=== PATIENT | female | born 1940 | race Caucasian/White ===

== ENCOUNTER → 2018-08-31 | Outpatient (CLI) | payer MEDICARE ==
--- NOTE | 2018-08-31 14:43 | PCVCIMAG ---
EXAM: BILATERAL LOWER EXTREMITY ARTERIAL DUPLEX INDICATION: Peripheral Arterial Disease. Leg pain. Nonhealing ulcer medial left ankle. FINDINGS: Right Leg: Common femoral and profunda femoral arteries are patent. Superficial femoral artery and popliteal artery are patent. The anterior and posterior tibial arteries are patent. Occlusion throughout the peroneal artery. Left Leg: Common femoral and profunda femoral arteries are patent. Superficial femoral artery and popliteal artery are patent. Segmental occlusion mid anterior tibial artery. Occlusion of the distal posterior tibial artery. Peroneal artery is patent. IMPRESSION: Occlusion of the right peroneal artery. Otherwise no flow limiting stenosis in the right lower extremity. No left superficial femoral and popliteal artery stenosis. Occlusion of the mid left anterior tibial artery and the distal left posterior tibial artery. LOC:[id number]
== END | disposition home or self-care (01) ==
LOC: PCVCIMAG 11:04
PROVIDERS: ATTEND Emergency Medicine
DX: I73.9 Peripheral vascular disease, unspecified (principal); L97.321 Non-pressure chronic ulcer of left ankle limited to breakdown of skin
CPT/HCPCS: 93925

== ENCOUNTER → 2018-09-30 | Outpatient (CLI) | payer MEDICARE ==
[~2018-09-30] MED LIST: DIAZEPAM 10 MG TABLET. ONE; HEPARIN for SUB-Q USE 5,000 UNIT/ML VIAL. SQ ONE; IODIXANOL 270 MG/ML 100 ML VIAL. ONE; IV NORMAL SALINE 500ML BAG 500 ML ONE; LIDOCAINE 1%/EPI 1:100,000 20 ML VIAL. ONE; MIDAZOLAM HCL/PF 2 MG/2 ML VIAL. ONE; fentaNYL PF VIAL 100 MCG/2 ML VIAL ONE
--- NOTE | 2018-09-30 14:03 | PCVCINTER ---
EXAM: 1. AORTOGRAM AND BILATERAL LOWER EXTREMITY RUNOFF ANGIOGRAM. 2. BILATERAL RENAL ANGIOGRAPHY. INDICATION: Peripheral arterial disease. Nonhealing ulcer left lower extremity. Hypertension. Renal atherosclerosis. No prior catheter based angiographic study is available. A full diagnostic angiogram study is performed today and the decision to intervene is based on this diagnostic study. PROCEDURE: Procedure and risks of angiography intervention is appropriate including limb loss stroke and were discussed with the patient's family and consent obtained. The patient's right groin was prepped in the normal sterile fashion. IV conscious sedation was used throughout procedure with appropriate monitoring from 10:00 AM through 10:45 AM. Ultrasound was used to interrogate the right groin and showed the right common femoral artery to be patent. A permanent spot film was obtained. Under ultrasound guidance access into the right common femoral artery was obtained and a 5 [place] sheath was placed. Through this a 5 [place] flush catheter was placed into the abdominal aorta at the level of the renal arteries and AP aortogram was performed. Catheter was positioned at the aortic bifurcation and both oblique views of the pelvis were obtained. Catheter was positioned into the right external iliac artery and right leg runoff angiography was performed. Catheter was exchanged for a visceral catheter was placed into the right renal arteries and right renal angiograms obtained. Catheter was placed into the the left renal arteries and left renal angiograms were obtained. Catheter was advanced to the level of the left external iliac artery and left leg runoff angiography was obtained. Follow-up angiogram was performed. Catheters and wires removed. Sheath was removed and hemostasis obtained using the FISH device. No immediate complications. FINDINGS: Aortogram: There is one right and one left renal artery. Minimal plaque infrarenal abdominal aorta without significant stenosis. Pelvis: The right and left common and external iliac arteries show good patency. Both internal iliac arteries are patent. The right and left common femoral and profunda femoral arteries are patent. Right renal artery: Minimal plaque proximal vessel causes significant stenosis. Left renal artery: Minimal plaque proximal vessel does not cause significant stenosis. Right leg: Superficial femoral artery shows good patency throughout. Mild 30% stenosis upper popliteal artery is not flow-limiting. Three-vessel runoff into the foot. Note is made the dorsalis pedis is diminutive in size. Left leg: Superficial femoral artery and popliteal arteries show good patency throughout. The posterior tibial artery shows good patency throughout until 1 cm before the plantar arteries where it shows a 50% stenosis. Plantar arteries are within normal limits in size. The peroneal artery shows good patency. The anterior tibial artery shows good patency as well throughout its length to runoff into a moderate-sized dorsalis pedis. IMPRESSION: No flow limiting stenosis in the right lower extremity. Mild stenosis distal most left posterior tibial artery not felt be flow-limiting. Otherwise no stenosis identified in the left lower extremity. We will have the patient return for superficial venous duplex evaluation of the lower extremities. LOC:[id number]
== END | disposition home or self-care (01) ==
LOC: PCVCINTER 08:40
PROVIDERS: ATTEND Nuclear Medicine Nuclear Cardiology
DX: I70.201 Unspecified atherosclerosis of native arteries of extremities, right leg (principal); I70.202 Unspecified atherosclerosis of native arteries of extremities, left leg; I10 Essential (primary) hypertension
CPT/HCPCS: 36252; 75716; 76937; 99152; 99153; C1725; C1751; C1760; C1769; C1894; J1644; J2250; J3010; J3490; J7040; Q9967; J0690

== ENCOUNTER → 2018-10-29 | Outpatient (CLI) | payer MEDICARE ==
[~2018-10-29] MED LIST changes: +EPTIFIBATIDE BOLUS 2,000 MCG/ML 10ML VIAL. IV ONE; -IODIXANOL 270 MG/ML 100 ML VIAL. ONE; +IOHEXOL 300 MG/ML 100ML VIAL. ONE; +IV NORMAL SALINE 1000ML BAG 1,000 ML ONE; -IV NORMAL SALINE 500ML BAG 500 ML ONE; +LIDOCAINE 1% Multi-Dose 20 ML VIAL. ONE; -LIDOCAINE 1%/EPI 1:100,000 20 ML VIAL. ONE; +VANCOMYCIN 1GM IVPB FOR OMNI 250 ML ONE; +hydrALAZINE 20 MG/ML VIAL. ONE
--- NOTE | 2018-10-29 16:29 | PCVCINTER ---
EXAM: 1. INTRAVASCULAR ULTRASOUND OF THE INFERIOR VENA CAVA 2. INTRAVASCULAR ULTRASOUND OF THE RIGHT COMMON AND EXTERNAL ILIAC AND COMMON FEMORAL VEINS 3. INTRAVASCULAR ULTRASOUND OF THE LEFT COMMON AND EXTERNAL ILIAC AND COMMON FEMORAL VEINS 4. INFERIOR VENA CAVA AND BILATERAL ILIOFEMORAL VENOGRAPHY 5. LEFT COMMON ILIAC VEIN STENT PLACEMENT. 6. LEFT EXTERNAL ILIAC VEIN STENT PLACEMENT. INDICATION: Iliofemoral venous obstruction. Chronic Venous Insufficiency Class 4a. Leg pain and swelling. Failed conservative therapy including medical grade compression stockings for at least 3 months. Venous hypertension chronic. PROCEDURE: Procedure and risks of IVC and ileofemoral venography and intravascular ultrasound, and venous stent placement as appropriate including bleeding, infection, venous thrombosis, stent migration/thrombosis, contrast-induced nephropathy requiring dialysis, stroke, and were discussed with the patient and consent obtained. Patient was given IV antibiotics. The patient's right neck and chest was prepped and draped in the normal sterile fashion. IV conscious sedation was used throughout the procedure with appropriate monitoring. Ultrasound was used to interrogate the neck and showed the internal jugular vein to be patent. A spot ultrasound image of the internal jugular vein was saved. Under ultrasound guidance access into the right internal jugular vein was obtained and an 8F sheath was placed to the level of the lower IVC. Catheter was placed into the lower IVC and IVC cavogram performed. Catheter was placed to the level of the right common femoral vein and right iliofemoral venogram obtained. Catheter was placed to the level of the left common femoral vein and left iliofemoral venogram was obtained. The 8 [place] intravascular ultrasound catheter was then placed to the level of the right common femoral vein and intravascular ultrasound evaluation of the right common femoral, right external iliac, and right common iliac veins was accomplished in a pull-back fashion. The 8 [place] intravascular ultrasound catheter was then placed to the level of the left common femoral vein and intravascular ultrasound evaluation of the left common femoral, left external iliac, and left common iliac veins was accomplished in a pull-back fashion. Intravascular ultrasound evaluation of the inferior vena cava was then accomplished in a pullback fashion. Stent placement across the areas of high-grade stenosis in the left external iliac vein was carried out with a 14 x 80 Smart control stent with subsequent dilatation to 14.0 mm. Stent placement across the areas of high-grade stenosis in the left common iliac vein was carried out with a 14 x 80 Smart control stent with subsequent dilatation to 14.0 mm. Sheath was removed and hemostasis obtained using manual pressure. FINDINGS: IVC INTRAVASCULAR ULTRASOUND: Normal vessel: 8.4 x 23.2 mm. Area = 168.1 sq. mm. RIGHT COMMON ILIAC VEIN INTRAVASCULAR ULTRASOUND: Normal vessel: 13.8 x 19.3 mm. Area = 218.0 sq. mm. RIGHT EXTERNAL ILIAC VEIN INTRAVASCULAR ULTRASOUND: Normal vessel: 11.2 x 16.7 mm. Area = 153.6 sq. mm. RIGHT COMMON FEMORAL VEIN INTRAVASCULAR ULTRASOUND: Normal vessel: 11.4 x 13.7 mm. Area = 124.9 sq. mm. LEFT COMMON ILIAC VEIN INTRAVASCULAR ULTRASOUND: Normal vessel: 8.9 x 13.9 mm. Area = 95.9 sq. mm. Minimum vessel diameter: 3.9 x 7.0 mm. Area = 26.1 sq. mm. Post-Intervention diameter: 11.3 x 13.8 mm. Area = 125.6 sq. mm. LEFT EXTERNAL ILIAC VEIN INTRAVASCULAR ULTRASOUND: Normal vessel: 12.2 x 13.6 mm. Area = 132.0 sq. mm. Minimum vessel diameter: 1.2 x 2.6 mm. Area = 11.3 sq. mm. Post-Intervention diameter: 11.2 x 13.8 mm. Area = 131.0 sq. mm. LEFT COMMON FEMORAL VEIN INTRAVASCULAR ULTRASOUND: Normal vessel: 10.4 x 17.6 mm. Area = 154.0 sq. mm. VENOGRAPHY: INFERIOR VENA CAVA: Vessel is patent without significant stenosis, scar, or extrinsic compression. RIGHT COMMON ILIAC VEIN: Vessel is patent without significant stenosis, scar, or extrinsic compression. RIGHT EXTERNAL ILIAC VEIN: Vessel is patent without significant stenosis, scar, or extrinsic compression. RIGHT COMMON FEMORAL VEIN: Vessel is patent without significant stenosis, scar, or extrinsic compression. LEFT COMMON ILIAC VEIN: Near complete occlusion throughout the left common iliac vein due to high-grade eccentric compression. LEFT EXTERNAL ILIAC VEIN: 90% area reduction mid and upper vein due to high-grade extrinsic compression. LEFT COMMON FEMORAL VEIN: Vessel is patent without significant stenosis, scar, or extrinsic compression. IMPRESSION: High-grade eccentric compression involving the left common and external iliac veins as detailed above were treated with stent placement with good patency restored. The inferior vena cava, right common and external iliac veins, and right common femoral vein are patent. LOC:[place] [id number]
== END | disposition home or self-care (01) ==
LOC: PCVCINTER 08:47
PROVIDERS: ATTEND Nuclear Medicine Nuclear Cardiology
DX: I87.2 Venous insufficiency (chronic) (peripheral) (principal); I87.309 Chronic venous hypertension (idiopathic) without complications of unspecified lower extremity; I11.0 Hypertensive heart disease with heart failure; I50.22 Chronic systolic (congestive) heart failure; I42.0 Dilated cardiomyopathy; Z79.01 Long term (current) use of anticoagulants; I48.0 Paroxysmal atrial fibrillation; E78.5 Hyperlipidemia, unspecified; E03.9 Hypothyroidism, unspecified; I87.1 Compression of vein; Z95.810 Presence of automatic (implantable) cardiac defibrillator; Z98.890 Other specified postprocedural states; Z82.3 Family history of stroke; Z98.49 Cataract extraction status, unspecified eye; Z96.1 Presence of intraocular lens; Z88.0 Allergy status to penicillin; Z88.8 Allergy status to other drugs, medicaments and biological substances; Z79.899 Other long term (current) drug therapy; Z79.82 Long term (current) use of aspirin
CPT/HCPCS: 36012; 37238; 37239; 37252; 37253; 75822; 75825; 76937; 99152; 99153; C1725; C1751; C1753; C1769; C1876; C1894; J1644; J2250; J3010; J3370; J7030; Q9967; J0360; J1327

== ENCOUNTER → 2019-02-10 | Outpatient (CLI) | payer MEDICARE ==
--- NOTE | 2019-02-10 17:01 | PCVCIMAG ---
EXAM: VENOUS DUPLEX OF THE INFERIOR VENA CAVA AND BILATERAL ILIAC VEINS. INDICATION: Leg pain and swelling. FINDINGS: Inferior vena cava: IVC appears patent where visualized. Right common and external iliac veins: Iliac veins are patent. Left common and external iliac veins: Previous stents throughout the left-sided iliac veins appear patent without obvious stenosis. IMPRESSION: Inferior vena cava and bilateral iliac veins appear patent. Previous left iliac vein stents maintaining adequate patency. LOC:[id number]
== END | disposition home or self-care (01) ==
LOC: PCVCIMAG 08:00
PROVIDERS: ATTEND Nuclear Medicine Nuclear Cardiology
DX: I87.1 Compression of vein (principal); I73.9 Peripheral vascular disease, unspecified; I87.2 Venous insufficiency (chronic) (peripheral); I48.0 Paroxysmal atrial fibrillation; I11.0 Hypertensive heart disease with heart failure; I50.22 Chronic systolic (congestive) heart failure; E78.5 Hyperlipidemia, unspecified; I82.5Y2 Chronic embolism and thrombosis of unspecified deep veins of left proximal lower extremity; Z79.82 Long term (current) use of aspirin; Z88.0 Allergy status to penicillin
CPT/HCPCS: 93976; G0463

== ENCOUNTER → 2019-03-31 | Outpatient (CLI) | payer MEDICARE ==
--- NOTE | 2019-03-31 20:03 | PCVCIMAG ---
EXAM: LEFT LOWER EXTREMITY ARTERIAL DUPLEX INDICATION: Peripheral Arterial Disease. Leg pain. Left lower leg nonhealing ulcer. Previous history of iliac vein stents. FINDINGS: Left Leg: Satisfactory arterial waveforms throughout the common/profunda/superficial femoral, popliteal, anterior tibial, peroneal, and posterior tibial arteries. No flow limiting stenosis seen. IMPRESSION: No flow limiting stenosis in the left lower extremity. LOC:OFFICE
== END | disposition home or self-care (01) ==
LOC: PCVCIMAG 13:40
PROVIDERS: ATTEND Nuclear Medicine Nuclear Cardiology
DX: I73.9 Peripheral vascular disease, unspecified (principal); L97.909 Non-pressure chronic ulcer of unspecified part of unspecified lower leg with unspecified severity
CPT/HCPCS: 93925; 93926